=== PATIENT | female | born 1975 | race African-American/Black ===

== ENCOUNTER → 2024-01-06 | Day surgery (SDC) | payer OTHER | END | disposition home or self-care (01) | LOC: JMAMMO-SUR 09:28 | PROVIDERS: ATTEND Advanced Practice Midwife | PROC: 0HBU3ZX Excision of Left Breast, Percutaneous Approach, Diagnostic (ICD-10-PCS; principal; 2024-01-06) | DX: N60.32 Fibrosclerosis of left breast (principal); N63.20 Unspecified lump in the left breast, unspecified quadrant | CPT/HCPCS: 19083; 77065-TC; 87899; 88305-TC; A4648 ==